=== PATIENT | female | born 1965 | race Two or more races ===

== ENCOUNTER 2021-06-28 08:00 | Outpatient (CLI) | payer OTHER | END 2021-06-28 08:30 | disposition home or self-care (01) | LOC: PPH VACUNA 08:00 | PROVIDERS: ATTEND Emergency Medicine Pediatric Emergency Medicine | DX: Z23 Encounter for immunization (principal) ==

== ENCOUNTER 2023-02-08 08:35 | Outpatient (CLI) | payer OTHER | END 2023-02-08 08:46 | disposition home or self-care (01) | LOC: RAD 08:35 | PROVIDERS: ATTEND Orthopaedic Surgery | DX: M75.42 Impingement syndrome of left shoulder (principal) ==

== ENCOUNTER 2023-12-26 15:12 | Outpatient (CLI) | payer OTHER | END 2023-12-26 15:20 | disposition home or self-care (01) | LOC: SONOGRAMA 15:12 | PROVIDERS: ATTEND Internal Medicine Gastroenterology | DX: R10.9 Unspecified abdominal pain (principal) ==

== ENCOUNTER 2024-06-11 11:26 | Outpatient (CLI) | payer OTHER | END 2024-06-11 11:37 | disposition home or self-care (01) | LOC: RAD 11:26 | PROVIDERS: ATTEND Internal Medicine Endocrinology, Diabetes & Metabolism | DX: R05.9 Cough, unspecified (principal); R06.00 Dyspnea, unspecified; R06.02 Shortness of breath ==

== ENCOUNTER 2024-12-18 07:44 | Outpatient (CLI) | payer OTHER | END 2024-12-18 07:52 | disposition home or self-care (01) | LOC: SONOGRAMA 07:44 | PROVIDERS: ATTEND Internal Medicine Endocrinology, Diabetes & Metabolism | DX: E11.9 Type 2 diabetes mellitus without complications (principal); K76.0 Fatty (change of) liver, not elsewhere classified ==

== ENCOUNTER 2025-05-06 07:24 | Outpatient (CLI) | payer OTHER | END 2025-05-06 07:33 | disposition home or self-care (01) | LOC: MRI 07:24 | PROVIDERS: ATTEND Internal Medicine Endocrinology, Diabetes & Metabolism | DX: C22.0 Liver cell carcinoma (principal); C22.2 Hepatoblastoma; E11.9 Type 2 diabetes mellitus without complications; I11.9 Hypertensive heart disease without heart failure; E78.2 Mixed hyperlipidemia | CPT/HCPCS: 74183 ==

== ENCOUNTER 2025-05-08 08:00 | Outpatient (CLI) | payer OTHER | END 2025-05-08 08:10 | disposition home or self-care (01) | LOC: SONOGRAMA 08:00 | PROVIDERS: ATTEND Internal Medicine | DX: E03.9 Hypothyroidism, unspecified (principal) ==